=== PATIENT | female | born 1965 | race Caucasian/White ===

== ENCOUNTER 2018-08-05 07:59 | Day surgery (SDC) | payer OTHER ==
[2018-08-05] MEDS ORDERED: LIDOCAINE 4% SOLUTION 50 ML BTL (10:56)
[2018-08-05] MEDS ORDERED: MIDAZOLAM 1 MG/ML 2 ML INJ ×2 (11:29)
[2018-08-05] MEDS ORDERED: FENTAnyl 50 MCG/ML VIAL (11:29)
== END 2018-08-05 15:20 | disposition home or self-care (01) ==
LOC: GIL 07:59
DX: K20.8 Other esophagitis (principal)
CPT/HCPCS: 43239; 88305; 88312; 88313